=== PATIENT | female | born 1995 | race Hispanic/Latino ===

== ENCOUNTER 2022-07-06 07:10 | Emergency (ER) | payer SELFPAY ==
[2022-07-06] MEDS ORDERED: Dexamethasone 10 MG/ML VIAL ONE (08:21)
== END 2022-07-06 09:07 | disposition home or self-care (01) ==
LOC: ERS 07:10
DX: L50.0 Allergic urticaria (principal)
CPT/HCPCS: 96372; 99283; J1100

== ENCOUNTER 2022-07-11 22:46 | Emergency (ER) | payer SELFPAY | END 2022-07-12 00:07 | disposition left against medical advice (07) | LOC: ERS 22:46 | DX: Z53.21 Procedure and treatment not carried out due to patient leaving prior to being seen by health care provider (principal) ==

== ENCOUNTER 2022-07-13 02:33 | Emergency (ER) | payer SELFPAY ==
[2022-07-13] MEDS ORDERED: methylPREDNISolone Sod Succ/PF 125 MG/2 ML VIAL ONE (03:24)
[2022-07-13] MEDS ORDERED: Ketorolac Tromethamine 30 MG/ML VIAL ONE (03:24)
[2022-07-13 04:37] LABS: SARS-CoV-2 NAA Rapid Test Not Detected (NotDetected)
== END 2022-07-13 05:06 | disposition home or self-care (01) ==
LOC: ERS 02:33
DX: J02.9 Acute pharyngitis, unspecified (principal); L50.9 Urticaria, unspecified; Z20.822 Contact with and (suspected) exposure to COVID-19
CPT/HCPCS: 71045; 93005; 96374; 96375; J1885; J2930; J7620; U0002

== ENCOUNTER 2023-11-13 02:59 | Emergency (ER) | payer SELFPAY ==
[2023-11-13] MEDS ORDERED: Morphine 4 MG/ML VIAL ONE (03:24)
[2023-11-13] MEDS ORDERED: Ondansetron PF 4 MG/2 ML Vial ONE (03:24)
[2023-11-13] MEDS ORDERED: Pantoprazole 40 MG VIAL ONE (03:25)
[2023-11-13 03:47] LABS: Bacteria/HPF None Seen HPF (None Seen); Bilirubin Negative (Negative); Blood, Urine Negative (Negative); CAUTI Indications for Culture Pelvic or flank pain; Clarity Clear (Clear); Glucose, Urine (Dipstick) Normal (Negative); Ketone, Urine Negative (Negative); Leukocyte Negative Leu/uL (Negative); Nitrite Negative (Negative); Protein, Urine (Dipstick) Negative (Neg-Trace); RBC/HPF 0-3 HPF (0-3); Specific Gravity, Urine 1.016 (1.002-1.036); Squamous Epithelial 0-3 HPF (0-3); Urobilinogen Normal mg/dL (Less than 2); WBC/HPF 0-3 HPF (0-3); pH, Urine 6.5 (5.0-9.0)
[2023-11-13 03:56] LABS: Urine Culture Reflex No No
[2023-11-13 04:10] LABS: #Eosinphils 0.4 thou/uL (0.0-0.7); #Monocytes 0.6 thou/uL (0.11-0.59); #Neutrophils 6.5 thou/uL (1.40-6.50); %Basophils 0.3 % (0.0-1.0); %Eosinophils 3.4 % (0.0-10.0); %Lymphocytes 31.6 % (21.0-51.0); %Monocytes 5.1 % (0.0-10.0); %Neutrophils 59.3 % (42.0-75.0); Hematocrit 33.7 % (36.0-47.0); Hemoglobin 11.4 g/dL (12.0-16.0); Mean Corpuscular HGB CONC 33.8 g/dL (32.0-36.0); Mean Corpuscular Hemoglobin 31.3 pg (27.0-31.0); Mean Corpuscular Volume 92.6 fl (78.0-98.0); Mean Platelet Volume 10.8 fL (7.4-10.4); Platelet Count 330 10x3/uL (130-400); RBC Distribution Width 14.7 % (11.5-14.5); Red Blood Cell (RBC) Count 3.64 mill/uL (4.20-5.40); White Blood Cell (WBC) Count 10.9 10x3/uL (4.8-10.8)
[2023-11-13 04:27] LABS: BHCG - Serum Negative (NEGATIVE); Pregs Control Background? CLEAR/WHITE (CLR/WHITE); Pregs Control Bar Appear? YES (CONTROL BAR)
[2023-11-13 06:25] LABS: ALT (SGPT) 8 U/L (8-55); AST (SGOT) 14 U/L (5-34); Albumin 4.1 g/dL (3.5-5.0); Alkaline Phosphatase 67 U/L (40-110); Anion Gap 12 mmol/L (10-20); BUN (Urea Nitrogen) 15 mg/dL (7.0-18.7); Bilirubin, Total 0.2 mg/dL (0.2-1.2); Calc. Creatinine Clearance 0 mL/min (70-130); Calcium 8.5 mg/dL (7.8-10.44); Carbon Dioxide 19 mmol/L (22-29); Chloride 108 mmol/L (98-107); Estimated GFR 116; Globulin 3.1 g/dL (2.4-3.5); Glucose 101 mg/dL (70-105); Lipase 100 U/L (8-78); Potassium 4.1 mmol/L (3.5-5.1); Protein, Total 7.2 g/dL (6.0-8.3); Sodium 135 mmol/L (136-145)
== END 2023-11-13 06:58 | disposition home or self-care (01) ==
LOC: ERS 02:59
DX: K29.00 Acute gastritis without bleeding (principal)
CPT/HCPCS: 36415; 71045; 76705; 80053; 81001; 83690; 84703; 85025; 93005; 96361; 96374; 96375; C9113; J2270; J2405